=== PATIENT | female | born 1980 | race Caucasian/White ===

== ENCOUNTER → 2017-03-13 | Day surgery (SDC) | payer BC ==
[~2017-03-13] MED LIST: CETI10TA22 PO; CITA20TA9 PO; GABA-585 PO; IRON1CAP17 PO; IV RINGERS,LACTATED 1000ML 1,000 ML IV SCH; LIDOCAINE 1% PF 2 ML VIAL. ID PRN; LIDOCAINE 2% PF Vial for OR 5 ML VIAL. ONE; MELO7.5T5 PO; MIDAZOLAM HCL/PF 2 MG/2 ML VIAL. IV PRN; OMEP20CA9 PO; PROPOFOL 40 ML IV ONE; birth control pill; fentaNYL PF VIAL 100 MCG/2 ML VIAL IV PRN
[2017-03-13 08:18] LABS: NEG OBC UR NEG; POS OBC UR POS
[2017-03-13 09:36] VITALS: BP 132/84
== END | disposition home or self-care (01) ==
LOC: ENDOS 07:22
PROVIDERS: ATTEND Internal Medicine Gastroenterology
DX: Z12.11 Encounter for screening for malignant neoplasm of colon (principal); K64.0 First degree hemorrhoids; D50.9 Iron deficiency anemia, unspecified; K29.70 Gastritis, unspecified, without bleeding; I10 Essential (primary) hypertension; M19.91 Primary osteoarthritis, unspecified site; Z90.49 Acquired absence of other specified parts of digestive tract; Z98.84 Bariatric surgery status; Z87.39 Personal history of other diseases of the musculoskeletal system and connective tissue; Z88.0 Allergy status to penicillin; Z88.8 Allergy status to other drugs, medicaments and biological substances; Z91.048 Other nonmedicinal substance allergy status; Z88.1 Allergy status to other antibiotic agents
CPT/HCPCS: 43235; 45378; 81025; J2704; J2001

== ENCOUNTER → 2021-09-13 | Outpatient (CLI) | payer BC ==
[2017-03-13 09:36] VITALS: BP 132/84
[~2021-09-13] MED LIST changes: -CETI10TA22 PO; +CETI10TA74 PO; -IV RINGERS,LACTATED 1000ML 1,000 ML IV SCH; -LIDOCAINE 1% PF 2 ML VIAL. ID PRN; -LIDOCAINE 2% PF Vial for OR 5 ML VIAL. ONE; -MIDAZOLAM HCL/PF 2 MG/2 ML VIAL. IV PRN; +OMEP20CA16 PO; -OMEP20CA9 PO; -PROPOFOL 40 ML IV ONE; -fentaNYL PF VIAL 100 MCG/2 ML VIAL IV PRN
--- NOTE | 2021-09-13 08:35 | RAD ---
DIAGNOSTIC BILATERAL BREAST MAMMOGRAM AND LEFT BREAST ULTRASOUND TECHNIQUE: Routine 2-D and 3-D digital mammography performed in the routine bilateral CC/MLO views. G rayscale and color doppler ultrasound of the left breast area of concern. INDICATION: Palpable lump left breast. COMPARISON: None available FINDINGS: Breast Density: Category B: There are scattered fibroglandular densities. A palpable marker is present at the outer left breast without corresponding mammographic finding. The re is no suspicious calcification, mass or architectural distortion bilaterally. Ultrasound performed in the left breast area of concern, 3:30 radial, 15 cm from the nipple, demonstr ates a peripherally echogenic, centrally hypoechoic focus within the subcutaneous fatty breast tissue measuring 0.6 x 0.6 x 0.5 cm. IMPRESSION: 1. No imaging evidence of malignancy. Palpable concern corresponds to suspected early fat necrosis o r lipoma. ASSESSMENT: BI-RADS 2: Benign. RECOMMENDATION: Routine annual screening mammogram. The facility will notify the patient of the results via mail. Patient information will be entered int o the mammography reminder system with a target recall date for the next mammogram. A reminder letter will be generated by the facility. Electronically signed by: Tirso Trinidad MD (09/13/2021 8:32 AM) [id number]
== END ==
LOC: MAMMO 07:34
PROVIDERS: ATTEND Obstetrics & Gynecology
DX: R92.8 Other abnormal and inconclusive findings on diagnostic imaging of breast (principal)
CPT/HCPCS: 76641; 77066